=== PATIENT | female | born 1930 | race Caucasian/White ===

== ENCOUNTER 2019-10-05 12:17 | Emergency (ER) | payer MEDICARE, BC ==
[~2019-10-05] VITALS: Ht 162.6 cm; Wt 52.2 kg
--- NOTE | 2019-10-05 12:01 | NUR ---
ED Nurse Note: Pt arrived with BH 3 due to lower back pain from home. no injury or fall. skin intact. vss.
[2019-10-05 12:03] VITALS: BP 167/82
--- NOTE | 2019-10-05 12:03 | NUR ---
ED Nurse Note: care rep at bedside
[2019-10-05] MEDS ORDERED: traMADol 50mg tab ORAL ONE (13:00)
[2019-10-05] MEDS ORDERED: Tylenol #3 tab (300mg/30mg) ORAL ONE (13:30)
[2019-10-05] MEDS ORDERED: Methocarbamol 750mg tab ORAL ONE (13:30)
--- NOTE | 2019-10-05 14:00 | NUR ---
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 VSS
[2019-10-05 14:23] LABS: APPEARANCE,URINE CLEAR; BILIRUBIN, URINE NEGATIVE (NEGATIVE); COLOR,URINE PALE YELLOW; GLUCOSE, URINE (UA) NEGATIVE (NEGATIVE); KETONES,URINE 3+ (NEGATIVE); LEUKOCYTE ESTERASE ,URINE NEGATIVE (NEGATIVE); NITRITE,URINE NEGATIVE (NEGATIVE); PH,URINE 6 (4.5-8.0); PROTEIN,URINE NEGATIVE (NEGATIVE); UROBILINOGEN,URINE NORMAL MG/DL (0.0-1.0)
--- NOTE | 2019-10-05 14:24 | Emergency Room Report ---
History of Present Illness General Chief Complaint: Back Pain-No Injury Source: Patient Present Illness HPI 89 YO female presents to the ED brought by her caregiver with a c/o 5/10 in severity left sided lower back pain with muscle spasms x 1 week. Pt. had acute onset after she lifted her walker and set it off to the left side of her in a twisting fashion when going to the bathroom. Pt. has taken Advil with no relief. She also has used lidocaine patches which were rx'd to her by her PCP which also did not provide complete relief. Pt. has pain exacerbation with twisting her torso. She is ambulatory with a walker. Denies saddle anesthesia. She denies numbness tingling or loss of sensation or gross motor movements of the extremities, incontinence of bowel or bladder. Denies CP, Palpitations, SOB , LOC, AMS, dizziness, Changes in Vision, weakness or a sudden severe headache. She denies nausea or vomiting. She denies abdominal pain or tenderness. She denies hx of renal stones. She denies midline neck or back pain. She also denies trauma or fall. She denies fevers, chills or recent spinal procedures. She also denies hx of cancer. She denies dysuria, hematuria or urinary frequency. previous hx of dementia and previous ankle fracture. She denies radiation of her pain and reports exacerbation with palpation. denies pain at rest. Allergies: Coded Allergies: No Known Allergies (Unverified , 10/05/19) Patient History Past Medical History: see triage record, other - dementia Past Surgical History: none Pertinent Family History: none Now: No Reviewed Nursing Documentation: PMH: Agreed; PSxH: Agreed Nursing Documentation-PMH Past Medical History: No History, Except For Review of Systems All Other Systems: negative except mentioned in HPI Physical Exam Vital Signs Date Time Temp Pulse Resp B/P (MAP) Pulse Ox O2 Delivery O2 Flow Rate FiO2 10/05/19 11:58 98.2 108 18 167/82 (110) 100 Room Air Sp02 EP Interpretation: reviewed, normal General Appearance: no apparent distress, alert, GCS 15, non-toxic Head: normocephalic, atraumatic Eyes: bilateral eye normal inspection, bilateral eye PERRL ENT: hearing grossly normal, normal voice Neck: full range of motion, no bony tend Respiratory: lungs clear, normal breath sounds, no respiratory distress, no accessory muscle use, no wheezing, speaking full sentences, other - TTP to the posterior left lateral rib area, no bruises, no flail chest. Cardiovascular #1: regular rate, rhythm, no edema Gastrointestinal: non tender, soft Genitourinary: normal inspection, no CVA tenderness Musculoskeletal: normal range of motion, gait/station normal, tender - Left paraspinal and upper gluteal TTP, FROM with exacerbation of pain temporarily in certain flexed positions, no LE weakness, pt. is NVI, no erythema, midline bony ttp, step-offs or obvious deformity. Neurologic: alert, motor strength/tone normal, oriented x3, sensory intact, responsive, speech normal Psychiatric: judgement/insight normal Skin: normal color Medical Decision Making PA Attestation Dr. Ferrara Is my supervising Physician whom patient management has been discussed with. Diagnostic Impression: Primary Impression: Back pain Qualified Codes: M54.5 - Low back pain ER Course 89 YO female presents to the ED brought by her caregiver with a c/o 5/10 in severity left sided lower back pain with muscle spasms x 1 week. Pt. had acute onset after she lifted her walker and set it off to the left side of her in a twisting fashion when going to the bathroom. Pt. has taken Advil with no relief. She also has used lidocaine patches which were rx'd to her by her PCP which also did not provide complete relief. Pt. has pain exacerbation with twisting her torso. She is ambulatory with a walker. Denies saddle anesthesia. She denies numbness tingling or loss of sensation or gross motor movements of the extremities, incontinence of bowel or bladder. Denies CP, Palpitations, SOB , LOC, AMS, dizziness, Changes in Vision, weakness or a sudden severe headache. She denies nausea or vomiting. She denies abdominal pain or tenderness. She denies hx of renal stones. She denies midline neck or back pain. She also denies trauma or fall. She denies fevers, chills or recent spinal procedures. She also denies hx of cancer. She denies dysuria, hematuria or urinary frequency. previous hx of dementia and previous ankle fracture. She denies radiation of her pain and reports exacerbation with palpation. denies pain at rest. Ddx considered but are not limited to Fracture, dislocation, contusion, epidural abscess, Sprain/Strain/Spasm, UTI, pyelonephritis jus to name a few. Vital signs: are WNL, pt. is afebrile H&PE are most consistent with Left sided low back muscle strain with spasm ORDERS: - lumbar X-ray not required at this time, no spinous process tenderness or hx of trauma. --Pt. reports tenderness to the left lower rib area and is requesting cxr. Denies cough. -UA: Most indicative of contamination: Presence of equal amounts of bacteria and squamous cells, no elevation in inflammatory markers, nitrite negative. ED INTERVENTIONS: -- Pt. refused Toradol injection. -Robaxin PO -Tylenol # 3 PO -Lidoderm TP -IBU PO Re-Evaluation: pt. states Her pain has subsided with ED interventions. d/w pt. follow up with PCP as an outpatient. Also advised to avoid lifting heavy objects on her own. DISCHARGE: At this time pt. is stable for d/c to home. Will provide printed patient care instructions, and any necessary prescriptions. Care plan and follow up instructions have been discussed with the patient prior to discharge. Labs Test 10/05/19 13:30 Urine Color Pale yellow Urine Appearance Clear Urine pH 6 (4.5-8.0) Urine Specific [place] 1.020 (1.005-1.035) Urine Protein Negative (NEGATIVE) Urine Glucose (UA) Negative (NEGATIVE) Urine Ketones 3+ (NEGATIVE) Urine Blood 3+ (NEGATIVE) Urine Nitrite Negative (NEGATIVE) Urine Bilirubin Negative (NEGATIVE) Urine Urobilinogen Normal MG/DL (0.0-1.0) Urine Leukocyte Esterase Negative (NEGATIVE) Urine RBC 2-4 /HPF (0 - 2) Urine WBC 2-4 /HPF (0 - 2) Urine Squamous Epithelial Cells Few /LPF (NONE/OCC) Urine Bacteria Occasional /HPF (NONE) Chest X-Ray Diagnostic Results Chest X-Ray Diagnostic Results : Chest X-Ray Ordered: Yes # of Views/Limited/Complete: 1 View Indication: Other - side pain EP Interpretation: Yes ETHAN Xray: Interpretation reviewed, by supervising MD, and agrees with findings. Interpretation: no consolidation, no effusion, no pneumothorax, no acute cardiopulmonary disease Impression: No acute disease Electronically Signed by: Dominique Delgado PA-C Last Vital Signs Date Time Temp Pulse Resp B/P (MAP) Pulse Ox O2 Delivery O2 Flow Rate FiO2 10/05/19 12:03 98.2 72 18 167/82 100 Room Air Status: improved Disposition: HOME, SELF-CARE Condition: Stable Scripts Methocarbamol* (ROBAXIN-750*) 750 Mg Tablet 750 MG PO TID, #21 TAB 0 Refills Prov: Dominique Delgado 10/05/19 Patient Instructions: Back Pain, Adult Additional Instructions: Take medications as directed. Follow up with a Primary Care Provider in 3-5 days, even if your symptoms have resolved. Return sooner to ED if new symptoms occur, or current symptoms become worse. Do not drink alcohol, drive, or operate heavy machinery while taking Robaxin ( Muscle Relaxers) as this may cause drowsiness. - Please note that this Emergency Department Report was dictated using [employer] account leader technology software, occasionally this can lead to erroneous entry secondary to interpretation by the dictation equipment. Dominique Delgado Oct 05, 2019 14:24
[2019-10-05] MEDS ORDERED: ROBAXIN-750750 MG PO (15:20)
--- NOTE | 2019-10-05 15:20 | NUR ---
ED Nurse Note: PT REPORTS PAIN IS STILL PRESENT. INFROMED ERPA
--- NOTE | 2019-10-05 15:23 | NUR ---
Note addisonayesha in EDM - 10/05/19 at 1525 by AILYN ER DISCHARGE NOTE: Patient is cleared to be discharged per ERMD, pt is aox4, on room air, with stable vital signs. pt was given dc and prescription instructions, pt was able to verbalize understanding, pt id elissa. pt is able to ambulate with steady gait. pt took all belongings.
[2019-10-05 16:42] VITALS: BP 155/79
--- NOTE | 2019-10-05 16:43 | NUR ---
ER DISCHARGE NOTE: Patient is cleared to be discharged per ERMD, pt is aox4, on room air, with stable vital signs. pt was given dc and prescription instructions, pt was able to verbalize understanding, pt id band removed. pt is able to ambulate with steady gait. pt took all belongings.
--- NOTE | 2019-10-05 17:20 | Diagnostic Imaging Report ---
Indication: Chest pain Technique: One view of the chest Comparison: none Findings: Heart is enlarged. There is a large retrocardiac hiatal hernia. No definite acute infiltrates, effusions, or congestion. There is an old healed fracture deformity of the right clavicle. Old healed right rib fracture deformities are also noted Impression: Cardiomegaly No definite acute process Hiatal hernia Other findings as noted
== END 2019-10-05 16:45 | disposition home or self-care (01) ==
LOC: EDBD 12:17 → EMR 16:30
DX: M54.5 Low back pain (principal)
CPT/HCPCS: 71045; 81003; 99283